=== PATIENT | female | born 1975 | race Caucasian/White ===

== ENCOUNTER 2016-07-25 05:37 | Day surgery (SDC) | payer OTHER ==
[~2016-07-25] VITALS: Ht 142.2 cm; Wt 66.7 kg
[2016-07-25 05:59] VITALS: BP 116/73
[2016-07-25 13:16] VITALS: BP 119/72
== END 2016-07-25 13:00 | disposition home or self-care (01) ==
LOC: OR 05:37
PROVIDERS: Surgery
PROC: 0FT44ZZ Resection of Gallbladder, Percutaneous Endoscopic Approach (ICD-10-PCS; principal; 2016-07-25 07:30)
DX: K80.10 Calculus of gallbladder with chronic cholecystitis without obstruction (principal); Z68.31 Body mass index [BMI] 31.0-31.9, adult
CPT/HCPCS: J0690; J2175; J2250; J3010; J3490